=== PATIENT | male | born 1970 | race Caucasian/White ===

== ENCOUNTER 2019-08-13 19:13 | Emergency (ER) | payer BC ==
[~2019-08-13] VITALS: Ht 182.9 cm; Wt 97.5 kg
--- OUTSIDE RECORDS SUMMARY | 2019-08-13 19:15 | XMS REPORT ---
Author Author [facility] Address Unknown Phone Unavailable Care Team Providers Care Cpr Instructor Name Role Phone DAVE TINEO Unavailable Unavailable Payers Payer Name Policy Type Policy Number Effective Date Expiration Date Problems This patient has no known problems. Allergies, Adverse Reactions, Alerts Allergy Name Allergy Type Status Severity Reaction(s) Onset Date Inactive Date Treating Clinician Comments No Known Allergies DA Active U 2019-04-30 00:00:00 Medications This patient has no known medications. Results Test Description Test Time Test Comments Text Results Atomic Results Result Comments BASIC METABOLIC PANEL 2019-05-01 01:18:00 SODIUM (test code=NA) 139 mEq/L 134-147 POTASSIUM (test code=K) 3.6 mEq/L 3.4-5.0 CHLORIDE (test code=CL) 105 mEq/L 100-108 CARBON DIOXIDE (test code=CO2) 28 mEq/L 21-33 ANION GAP (test code=GAP) 10 0-20 GLUCOSE (test code=GLU) 102 mg/dL 70-110 BLOOD UREA NITROGEN (test code=BUN) 15 mg/dL 7-18 GLOMERULAR FILTRATION RATE (test code=GFR) 59.4 95-105 Units of measure=ml/min/1.73 m2 CREATININE (test code=CREAT) 1.3 mg/dL 0.6-1.3 CALCIUM (test code=CA) 8.8 mg/dL 8.0-10.5 [id number] 01:18:00* Test Item Value Reference Range Comments TROPONIN-I (test code=TROPI) < 0.015 ng/mL 0.000-0.045 Negative: <=0.045 Positive: >=0.046 Correlation with serial results, other cardiac markers andclinical findings is necessary to determine the clinicalsignificance of this result. Results using different methodologies should not be comparedto one another as quantitative results may vary by method. CBC W/AUTO [id number] 00:53:00* Test Item Value Reference Range Comments WHITE BLOOD CELL (test code=WBC) 14.07 x10 3/uL 4.5-11.0 RED BLOOD CELL (test code=RBC) 4.85 x10 6/uL 4.00-5.60 HEMOGLOBIN (test code=HGB) 14.9 g/dL 12.5-16.9 HEMATOCRIT (test code=HCT) 43.0 % 37.5-50.7 MEAN CELL VOLUME (test code=MCV) 88.7 fL 81.0-99.0 MEAN CELL HGB (test code=MCH) 30.7 pg 27.0-33.0 MEAN CELL HGB CONCETRATION (test code=MCHC) 34.7 g/dL 33.0-37.0 RED CELL DISTRIBUTION WIDTH CV (test code=RDW) 12.3 % 11.5-14.5 RED CELL DISTRIBUTION WIDTH SD (test code=RDW-SD) 40.1 fL 37.0-54.0 PLATELET COUNT (test code=PLT) 362 x10 3/uL 150-400 MEAN PLATELET VOLUME (test code=MPV) 11.3 fL 7.0-9.0 NEUTROPHIL % (test code=NT%) 78.6 % 56.0-77.0 IMMATURE GRANULOCYTE % (test code=IG%) 0.6 % 0.0-2.0 LYMPHOCYTE % (test code=LY%) 13.5 % 14.0-32.0 MONOCYTE % (test code=MO%) 6.8 % 4.8-9.0 EOSINOPHIL % (test code=EO%) 0.1 % 0.3-3.7 BASOPHIL % (test code=BA%) 0.4 % 0.0-2.0 NUCLEATED RBC % (test code=NRBC%) 0.0 % 0-0 NEUTROPHIL # (test code=NT#) 11.06 x10 3/uL 2.0-7.6 IMMATURE GRANULOCYTE # (test code=IG#) 0.09 x10 3/uL 0.00-0.03 LYMPHOCYTE # (test code=LY#) 1.90 x10 3/uL 1.0-3.8 MONOCYTE # (test code=MO#) 0.95 x10 3/uL 0.1-0.8 EOSINOPHIL # (test code=EO#) 0.01 x10 3/uL 0.0-0.2 BASOPHIL # (test code=BA#) 0.06 x10 3/uL 0.0-0.2 NUCLEATED RBC # (test code=NRBC#) 0.00 x10 3/uL 0.0-0.1 MANUAL DIFF REQUIRED (test code=MDIFF) NO - XR CHEST 1 [id number] 23:02:00 FAX: Ac Cross MD [phone] [place]: St: REG Name: CHRIS ORANTES [facility] : [birth year] 74 Age/S: 48/M [address] [place] [address] Blvd Unit #: [id number] Loc: [place] [address] Phys: Ac Amato MD Acct: [id number] Dis Date: Status: REG ER PHONE #: [phone] Exam Date: 04/30/20192255 FAX #: [phone] Reason: Chest Pain EXAMS: CPT CODE: [id number] XR CHEST 1 V 14315 CHEST, SINGLE VIEW H ISTORY: Chest pain No comparison. FINDINGS: The lungs are clear. The heart size and pulmonary vascularity are within normal limits. IMPRESSION: No active pr ocess. SL:01 Electronically Sign ed by Marybeth Cuevas on 04/30/2019 at 2302 Reported and signed by: Roseanne Mcgee CC: Ac Amato MD Technologist: RT Lynne(R) Trnscrd Date/Time/By: 04/30/2019 (2301) : By: Mago Orig Print D/T: S: 0 04/30/2019 (4921) PAGE 1 Signed Re port Stress Test - Treadmill ONLY [place] [address] Patient Name : CHRIS LOPEZ MR #: [id number] : 1970 Age/Sex: 47/M Adm Physi rosa : DAVE TINEO MD Admit Date : 05/26/17 Location : [facility] Room/Bed : [place] [address] REPORT: Cardiology Report DATE OF STUDY: May 27, 2017 EXERCISE TREADMILL STRESS TEST IND ICATIONS: Chest pain. PROCEDURE IN DETAIL: The patient performed treadmill exercise using a RADHA protocol, exercising for 10 minutes 1 second to stage 4 and completing an estimated workload of 12.8 metabolic equivalents (METS). Th e patient's heart rate kate from 93 beats per minute at rest to 174 beats per minute at peak exercise, which was 99% of maximum predicted heart rate. The re sting blood pressure was 124/81 mmHg and increased to 155/88 mmHg, which is a normal response. There were no any symptoms other than fatigue during the pro cedure. The patient's resting electrocardiogram demonstrated normal sinus rhy thm. There were no ST segment changes consistent with myocardial ischemia. CONCLUSIONS: Normal clinical, hemodynamic and ECG exercise treadmill stress test. Job#: [id number] ABRAHAM Signature Date Dictated By: FAUZIA NEGRON MD Transcribed By: DEMETRIUS on 05/27/17 <Electronically signed by FAUZIA NEGRON MD><<Signature on File>>05/29/17 4149 COPY TO: CHEST SINGLE (PORTABLE) [place] [address] Patient Name: CHRIS LOPEZ MR #: [id number] : 1970 Age/Sex: 47/M Req #: [id number] [facility] Physician: Ordered by: CHRIS SHI MD Report #: [id number] Location: ER Ro om/Bed: Procedure: [id number] DX/CHEST SINGLE (PORTABL E) Exam Date: Exam Time: REPORT STATUS: Sign ed EXAM: CHEST SINGLE (PORTABLE), AP 1 view DATE: 05/26/2017 9:48 PM Time s tamp on exam: 2157 hours INDICATION: Pain in left axilla COMPARISON: None FINDINGS: LINES/TUBES: None LUNGS: No consolidations or edema. P LEURA: No effusions or pneumothorax. HEART AND MEDIASTINUM: Normal size and contour. BONES AND SOFT TISSUES: No acute findings. IMPRESSION: No acute thoracic abnormality. Signed by: Dr. Sony Spears M.D. on 05/26/2017 10:29 PM Dictated By: SONY SPEARS MD 28 Transcribed By: ORLANDO on 05/26/172228 COPY TO: CHRIS SHI MD
[2019-08-13] MEDS ORDERED: ASPIRIN 81 MG CHEW TAB PO ONE (19:30)
[2019-08-13 19:49] LABS: BASOPHILS % 0.4 % (0.0-1.0); EOSINOPHILS % 0.4 % (0.0-6.0); HEMATOCRIT 44.1 % (38.2-49.6); HEMOGLOBIN 15.1 g/dL (14.0-18.0); LYMPHOCYTES # (AUTO) 2.4 (1.0-3.2); LYMPHOCYTES % 22.6 % (18.0-39.1); MEAN CORPUSCULAR HEMOGLOBIN 30.3 pg (28-32); MEAN CORPUSCULAR HGB CONC 34.2 g/dL (31-35); MEAN CORPUSCULAR VOLUME 88.6 fL (81-99); MONOCYTES # (AUTO) 0.7 (0.2-0.8); MONOCYTES % 6.5 % (4.4-11.3); NEUTROPHILS # (AUTO) 7.3 (2.1-6.9); NEUTROPHILS % 69.7 % (38.7-80.0); PLATELET COUNT 346 x10e3/uL (140-360); RED BLOOD COUNT 4.98 x10e6/uL (4.3-5.7); RED CELL DISTRIBUTION WIDTH 12.5 % (11.7-14.4)
[2019-08-13 20:05] LABS: ALANINE AMINOTRANSFERASE 55 IU/L (0-55); ALBUMIN 4.3 g/dL (3.5-5.0); ALBUMIN/GLOBULIN RATIO 1.3 (0.8-2.0); ALKALINE PHOSPHATASE 94 IU/L (40-150); ANION GAP 13.9 mmol/L (8-16); BLOOD UREA NITROGEN 10 mg/dL (7-26); BUN/CREATININE RATIO 9 (6-25); CALCIUM 9.4 mg/dL (8.4-10.2); CARBON DIOXIDE 26 mmol/L (22-29); CHLORIDE 103 mmol/L (98-107); CREATINE KINASE 142 IU/L (30-200); CREATININE, SERUM 1.15 mg/dL (0.72-1.25); EST GLOMERULAR FILTRATION RATE > 60 ML/MIN (60-); GLUCOSE 99 mg/dL (74-118); POTASSIUM 3.9 mmol/L (3.5-5.1); SODIUM 139 mmol/L (136-145)
--- NOTE | 2019-08-13 20:30 | Diagnostic Imaging Report ---
EXAMINATION: PA and lateral views of the chest. COMPARISON: None CLINICAL HISTORY: Chest discomfort DISCUSSION: Lines/tubes: None. Lungs: The lungs are well inflated and clear. No pneumonia or pulmonary edema. Pleura: No pleural effusion or pneumothorax. Heart and mediastinum: The cardiomediastinal silhouette is normal. Bones and soft tissues: No acute bony abnormalities. IMPRESSION: No acute cardiopulmonary abnormalities. Signed by: Dr. Surjit Reed M.D. on 08/13/2019 8:27 PM
== END 2019-08-13 20:45 | disposition home or self-care (01) ==
LOC: ER 19:13
DX: R07.89 Other chest pain (principal); Z82.49 Family history of ischemic heart disease and other diseases of the circulatory system
CPT/HCPCS: 36415; 71046; 80053; 82550; 82553; 84484; 85025; 99283

== ENCOUNTER → 2019-09-21 | Outpatient (CLI) | payer BC ==
--- NOTE | 2019-09-21 16:46 | Diagnostic Imaging Report ---
EXAM: Right upper quadrant abdominal ultrasound INDICATION: Right upper quadrant pain COMPARISON: None. TECHNIQUE: Transverse and longitudinal images of the right upper quadrant abdomen were obtained FINDINGS: Liver: Size: 15.0 cm in the right midclavicular line, normal Appearance: Increased echogenicity, smooth contour Mass: No focal masses Gallbladder: No gallbladder distension, pericholecystic fluid, wall thickening, stone, or reported sonographic Crane's sign. Gallbladder wall measures 2 mm. Bile Ducts: Intrahepatic Ducts: No dilatation Extrahepatic Ducts: Common bile duct measures 3 mm Pancreas: Visualized portions of the pancreatic head, neck and proximal body are normal. Kidney: The right kidney measures 11.4 cm without evidence of hydronephrosis or stone. Vessels: Aorta: Visualized portions are normal Inferior Vena Cava: Visualized portions are normal Main Portal Vein: 0.7 cm, normal size with hepatopetal flow. Free Fluid: No ascites or pleural effusion IMPRESSION: No sonographic evidence of cholelithiasis or cholecystitis. Hepatic steatosis. Signed by: Melida Riley MD on 09/21/2019 4:43 PM
== END ==
LOC: US 15:30
PROVIDERS: ATTEND Internal Medicine
DX: R10.10 Upper abdominal pain, unspecified (principal)
CPT/HCPCS: 76705

== ENCOUNTER 2022-08-20 17:31 | Emergency (ER) | payer BC ==
[~2022-08-20] VITALS: Ht 180.3 cm; Wt 99.8 kg
[2022-08-20] MEDS ORDERED: IBUPROFEN200 MG PO (18:03)
[2022-08-20] MEDS ORDERED: THERAFLU FLU &1 EAC1 PO (18:03)
[2022-08-20] MEDS ORDERED: CEFDINIR300 MG PO (18:03)
== END 2022-08-20 18:19 | disposition home or self-care (01) ==
LOC: FSED 18:04
DX: R50.9 Fever, unspecified (principal); J02.9 Acute pharyngitis, unspecified; R53.81 Other malaise; R53.83 Other fatigue
CPT/HCPCS: 83518; 87400; 99282

== ENCOUNTER 2022-11-15 01:19 | Emergency (ER) | payer BC ==
[~2022-11-15] VITALS: Ht 180.3 cm; Wt 99.8 kg
[~2022-11-15 01:19] MED LIST: CEFDINIR300 MG PO; IBUPROFEN200 MG PO; THERAFLU FLU &1 EAC1 PO
[2022-11-15 01:57] LABS: BASOPHILS # (AUTO) 0.1 (0.0-0.1); BASOPHILS % 0.7 % (0.0-1.0); EOSINOPHILS # (AUTO) 0.1 (0.0-0.4); EOSINOPHILS % 1.6 % (0.0-6.0); HEMATOCRIT 46.2 % (38.2-49.6); HEMOGLOBIN 14.3 g/dL (14.0-18.0); LYMPHOCYTES # (AUTO) 2.9 (1.0-3.2); LYMPHOCYTES % 32.4 % (18.0-39.1); MEAN CORPUSCULAR VOLUME 97.1 fL (81-99); MONOCYTES # (AUTO) 0.8 (0.2-0.8); MONOCYTES % 9.2 % (4.4-11.3); NEUTROPHILS # (AUTO) 4.9 (2.1-6.9); NEUTROPHILS % 55.9 % (38.7-80.0); PLATELET COUNT 318 x10e3/uL (140-360); RED BLOOD COUNT 4.76 x10e6/uL (4.3-5.7); RED CELL DISTRIBUTION WIDTH 12.4 % (11.7-14.4)
[2022-11-15 02:10] LABS: ALANINE AMINOTRANSFERASE 42 IU/L (0-55); ALBUMIN 4.3 g/dL (3.5-5.0); ALBUMIN/GLOBULIN RATIO 1.3 (0.8-2.0); ALKALINE PHOSPHATASE 99 IU/L (40-150); ANION GAP 14.5 mmol/L (8-16); BLOOD UREA NITROGEN 14 mg/dL (7-26); BUN/CREATININE RATIO 13 (6-25); CARBON DIOXIDE 22 mmol/L (22-29); CHLORIDE 107 mmol/L (98-107); CREATINE KINASE 122 IU/L (30-200); CREATININE, SERUM 1.07 mg/dL (0.72-1.25); GLUCOSE 108 mg/dL (74-118); POTASSIUM 3.5 mmol/L (3.5-5.1); SODIUM 140 mmol/L (136-145)
== END 2022-11-15 02:40 | disposition home or self-care (01) ==
LOC: ER 01:24
DX: R07.89 Other chest pain (principal); M25.512 Pain in left shoulder; I10 Essential (primary) hypertension; R94.31 Abnormal electrocardiogram [ECG] [EKG]
CPT/HCPCS: 36415; 71045; 80053; 82550; 82553; 84484; 85025; 93041; 99284